=== PATIENT | male | born 1990 | race American Indian/Alaskan Native ===

== ENCOUNTER 2018-11-27 17:49 | Emergency (ER) | payer SELFPAY ==
--- NOTE | 2018-11-27 18:04 | Emergency Department Report ---
Blank Doc - Documentation Documentation: This is a 28-year-old male that presents with left flank/lower back pain. Pat ient denies any radiation of pain. Denies any urinary symptoms. Denies any other complaints. This initial assessment diagnostic orders/clinical plan/treatment(s) is/are subject to change based on patient's health status, clinical progression and re- assessment by fellow clinical providers in the ED. Further treatment and workup at subsequent clinical providers discretion. Patient/guardians urged not to elope from ED s their condition may be serious if not clinically assessed and managed. Initial orders include: 1-patient sent to [facility] for further evaluation and treatment. 2- UA
[2018-11-27 19:01] LABS: Bilirubin,Urine NEG (Negative); Blood,Urine SM (Negative); Color,Urine Yellow (Yellow); Mucus,Urine 3+ /HPF; Urobilinogen,Urine < 2.0 mg/dL (<2.0)
[2018-11-27] MEDS ORDERED: IBUPROFEN PO ONE (23:24)
--- NOTE | 2018-11-27 23:51 | XRay Report ---
FINAL REPORT PROCEDURE: XR CHEST ROUTINE 2V TECHNIQUE: PA and lateral chest radiographs were obtained. CPT 91621 HISTORY: rib pain COMPARISON: No prior studies are available for comparison. FINDINGS: Heart: Normal. Mediastinum/Vessels: Normal. Lungs/Pleural space: Normal. Bony thorax: No acute osseous abnormality. Other: IMPRESSION: Normal examination.
--- NOTE | 2018-11-28 00:45 | Emergency Department Report ---
ED Back Pain/Injury HPI - General Chief Complaint: Back Pain/Injury Stated Complaint: ABD PAIN Time Seen by Provider: 11/27/18 18:02 Source: patient Limitations: No Limitations - History of Present Illness Initial Comments: 28-year-old male to emergency department complaining of pain, left rib region. It worsens with deep breaths and certain range of motion ac tivity reports no known trauma. Denies any cough, congestion, fever, chills, sweats, hemoptysis, hematemesis, hematochezia. Pain is sharp ache and not associated with any urinary symptoms lower back symptoms. There is not have a previous history of MD Complaint: back pain Similar Symptoms Previously: No Place: home Radiation: flank (left rib region), other Quality: dull Consistency: constant Improves With: none Worsens With: none Context: while lifting, turning/twisting Associated Symptoms: denies: numbness, cough, difficulty urinating, diaphoresis, incontinence, fever/chills, constipation, abdominal pain, loss of appetite, nausea/vomiting, rash, seizure, syncope - Related Data Previous Rx's Medication Instructions Recorded Last Taken Type Ketorolac [Toradol] 10 mg PO Q6H PRN #15 tablet 11/28/18 Unknown Rx Methocarbamol [Robaxin TAB] 750 mg PO Q8H PRN #14 tablet 11/28/18 Unknown Rx Allergies Allergy/AdvReac Type Severity Reaction Status Date / Time No Known Allergies Allergy Unverified 11/27/18 18:03 ED Review of Systems ROS: Stated complaint: ABD PAIN Other details as noted in HPI Constitutional: denies: chills, fever Eyes: denies: eye pain, eye discharge, vision change ENT: denies: ear pain, throat pain Respiratory: denies: cough, shortness of breath, wheezing Cardiovascular: denies: palpitations Endocrine: no symptoms reported Gastrointestinal: denies: abdominal pain, nausea, diarrhea Genitourinary: denies: urgency, dysuria Musculoskeletal: denies: back pain, joint swelling, arthralgia Skin: denies: rash, lesions Neurological: denies: headache, weakness, paresthesias Psychiatric: denies: anxiety, depression Hematological/Lymphatic: denies: easy bleeding, easy bruising ED Past Medical Hx - Social History Smoking Status: Current Every Day Smoker Substance Use Type: Marijuana - Medications Home Medications: Home Medications Medication Instructions Recorded Confirmed Last Taken Type Ketorolac [Toradol] 10 mg PO Q6H PRN #15 tablet 11/28/18 Unknown Rx Methocarbamol [Robaxin TAB] 750 mg PO Q8H PRN #14 tablet 11/28/18 Unknown Rx ED Physical Exam - General Limitations: No Limitations General appearance: alert, in no apparent distress - Head Head exam: Present: atraumatic, normocephalic - Eye Eye exam: Present: normal appearance, PERRL, EOMI Pupils: Present: normal accommodation - ENT ENT exam: Present: normal exam, normal orophraynx, mucous membranes moist - Neck Neck exam: Present: normal inspection, full ROM - Respiratory Respiratory exam: Present: normal lung sounds bilaterally, chest wall tenderness. Absent: respiratory distress, accessory muscle use, decreased breath sounds - Cardiovascular Cardiovascular Exam: Present: regular rate, normal rhythm. Absent: systolic murmur, diastolic murmur, rubs, gallop - GI/Abdominal GI/Abdominal exam: Present: soft, normal bowel sounds. Absent: tenderness, guarding, hyperactive bowel sounds, hypoactive bowel sounds, organomegaly, mass - Rectal Rectal exam: Present: deferred. Absent: normal inspection, normal rectal tone - Extremities Exam Extremities exam: Present: normal inspection - Back Exam Back exam: Present: normal inspection, full ROM, other (there is tenderness along the left intercostal region with palpation. Full range of motion. No step-off, no lives history reveals no crepitus appreciated. No bruising to the skin, no rash to the skin.). Absent: CVA tenderness (R), CVA tenderness (L), paraspinal tenderness, vertebral tenderness - Neurological Exam Neurological exam: Present: alert, oriented X3 - Psychiatric Psychiatric exam: Present: normal affect, normal mood - Skin Skin exam: Present: warm, dry, intact, normal color. Absent: rash ED Course Vital Signs 11/27/18 18:01 Temperature 97.7 F Pulse Rate 60 Respiratory 18 Rate Blood Pressure 130/82 O2 Sat by Pulse 100 Oximetry ED Medical Decision Making - Radiology Data Radiology results: report reviewed (no acute findings on the x-ray.), image reviewed Critical care attestation.: If time is entered above; I have spent that time in minutes in the direct care of this critically ill patient, excluding procedure time. ED Disposition Clinical Impression: Musculoskeletal pain Disposition: TO HOME OR SELFCARE Is pt being admited?: No Does the pt Need Aspirin: No Condition: Stable Instructions: Musculoskeletal Pain (ED) Prescriptions: Ketorolac [Toradol] 10 mg PO Q6H PRN #15 tablet PRN Reason: Pain Methocarbamol [Robaxin TAB] 750 mg PO Q8H PRN #14 tablet PRN Reason: Pain, Moderate (4-6) Referrals: LADONNA SMALLS [Primary Care Provider] - 3-5 Days
[2018-11-28 01:17] VITALS: BP 113/73
== END 2018-11-28 01:18 | disposition home or self-care (01) ==
LOC: ED 17:49
DX: R07.81 Pleurodynia (principal); F17.200 Nicotine dependence, unspecified, uncomplicated; F12.10 Cannabis abuse, uncomplicated
CPT/HCPCS: 71046; 81001

== ENCOUNTER 2021-12-20 15:11 | Emergency (ER) | payer MEDICAID ==
[2021-12-20 16:36] VITALS: BP 106/74
--- NOTE | 2021-12-20 18:46 | Emergency Department Report ---
ED Male HPI - General Chief complaint: Urogenital-Male Stated complaint: BLADDER PAIN Time Seen by Provider: 12/20/21 18:35 Source: patient Mode of arrival: Ambulatory Limitations: No Limitations - History of Present Illness Initial comments: 31-year-old sexually active male although unprotected presents emerged department complaining of having asthma flareup of urinary issues which are similar to that received experience in August where he was seen at [facility] and treated for an STD exacerbation although he is states that the actual STD acquired was unknown MD Complaint: dysuria -: Gradual, week(s) (1) Location: penis Radiation: none Severity: mild Quality: burning Consistency: constant Improves with: none Worsens with: urination dysuria, other (Increased urinary urgency increased urinary frequency decreased urinary duction increased bladder pressure no hematuria no rashes). denies: discharge, swelling, urinary retention - Related Data Sexually active: Yes (Risky sexual behavior reported) Previous Rx's Medication Instructions Recorded Last Taken Type Ketorolac [Toradol] 10 mg PO Q6H PRN #15 tablet 11/28/18 Unknown Rx methOCARBAMOL [Robaxin TAB] 750 mg PO Q8H PRN #14 tablet 11/28/18 Unknown Rx Phenazopyridine [Pyridium] 200 mg PO BID PRN #10 tab 12/20/21 Unknown Rx RX: DOXYCYCLINE Hyclate 100 mg PO BID #28 capsule 12/20/21 Unknown Rx [Vibramycin CAP] metroNIDAZOLE [Flagyl] 500 mg PO ONCE #4 tab 12/20/21 Unknown Rx Allergies Allergy/AdvReac Type Severity Reaction Status Date / Time No Known Allergies Allergy Unverified 11/27/18 18:03 ED Review of Systems ROS: Stated complaint: BLADDER PAIN Other details as noted in HPI Comment: All other systems reviewed and negative ED Past Medical Hx - Past Medical History Previous Medical History?: Yes Hx HIV: Yes - Social History Smoking Status: Never Smoker - Medications Home Medications: Home Medications Medication Instructions Recorded Confirmed Last Taken Type Ketorolac [Toradol] 10 mg PO Q6H PRN #15 tablet 11/28/18 Unknown Rx methOCARBAMOL [Robaxin TAB] 750 mg PO Q8H PRN #14 tablet 11/28/18 Unknown Rx Phenazopyridine [Pyridium] 200 mg PO BID PRN #10 tab 12/20/21 Unknown Rx RX: DOXYCYCLINE Hyclate 100 mg PO BID #28 capsule 12/20/21 Unknown Rx [Vibramycin CAP] metroNIDAZOLE [Flagyl] 500 mg PO ONCE #4 tab 12/20/21 Unknown Rx ED Physical Exam - General Limitations: No Limitations General appearance: alert, in no apparent distress - Head Head exam: Present: atraumatic, normocephalic - Eye Eye exam: Present: normal appearance, PERRL, EOMI Pupils: Present: normal accommodation - ENT ENT exam: Present: mucous membranes moist - Neck Neck exam: Present: normal inspection - Respiratory Respiratory exam: Present: normal lung sounds bilaterally. Absent: respiratory distress - Cardiovascular Cardiovascular Exam: Present: regular rate, normal rhythm. Absent: systolic murmur, diastolic murmur, rubs, gallop - GI/Abdominal GI/Abdominal exam: Present: soft, tenderness (Suprapubic pressure with palpation. No CVA tenderness noted.), normal bowel sounds - Rectal Rectal exam: Present: deferred - External exam: Present: normal external exam - Extremities Exam Extremities exam: Present: normal inspection - Back Exam Back exam: Present: normal inspection - Neurological Exam Neurological exam: Present: alert, oriented X3 - Psychiatric Psychiatric exam: Present: normal affect, normal mood - Skin Skin exam: Present: warm, dry, intact, normal color. Absent: rash ED Course Vital Signs 12/20/21 12/20/21 16:35 16:39 Temperature 98.3 F 98.3 F Pulse Rate 92 H 92 H Respiratory 18 18 Rate Blood Pressure 106/74 Blood Pressure 106/74 [Right] O2 Sat by Pulse 99 99 Oximetry ED Medical Decision Making - Lab Data Lab Results 12/20/21 Range/Units 18:54 Urine Color Jewels (Yellow) Urine Turbidity Cloudy (Clear) Urine pH 6.0 (5.0-7.0) Ur Specific [place] 1.028 (1.003-1.030) Urine Protein 100 mg/dl (Negative) mg/dL Urine Glucose (UA) Neg (Negative) mg/dL Urine Ketones Tr (Negative) mg/dL Urine Blood Lg (Negative) Urine Nitrite Neg (Negative) Urine Bilirubin Neg (Negative) Urine Urobilinogen < 2.0 (<2.0) mg/dL Ur Leukocyte Esterase Lg (Negative) Urine WBC (Auto) > 182.0 H (0.0-6.0) /HPF Urine RBC (Auto) > 182.0 (0.0-6.0) /HPF U Epithel Cells (Auto) 3.0 (0-13.0) /HPF Urine Bacteria (Auto) 2+ (Negative) /HPF Urine WBC Clumps 3+ /HPF Urine Mucus 3+ /HPF - Medical Decision Making 31-year-old male gentleman department complaining of risky sexual behavior and dysuria but no penile discharge. Urine urinalysis does show some elevated white blood cells and based on the history there is concern for STD will cover him in the emergency department with STD injection and gave him some antibiotics to follow-up to take at home and follow-up with primary care provider and and and advised follow-up with health department for a full panel of STD testing Critical care attestation.: If time is entered above; I have spent that time in minutes in the direct care of this critically ill patient, excluding procedure time. ED Disposition Clinical Impression: UTI (urinary tract infection), Possible exposure to STD Disposition: 01 HOME / SELF CARE / HOMELESS Is pt being admited?: No Does the pt Need Aspirin: No Condition: Stable Instructions: Urinalysis Test, Urinary Tract Infection, Adult, [id number], Safe Sex Prescriptions: metroNIDAZOLE [Flagyl] 500 mg PO ONCE #4 tab Phenazopyridine [Pyridium] 200 mg PO BID PRN #10 tab PRN Reason: dysuria RX: DOXYCYCLINE Hyclate [Vibramycin CAP] 100 mg PO BID #28 capsule Referrals: [facility] [Provider Group] - 3-5 Days [facility] [Outside] - 3-5 Days PRIMARY CARE, [Primary Care Provider] - 3-5 Days
[2021-12-20 20:24] LABS: Bacteria,Urine 2+ /HPF (Negative); Bilirubin,Urine NEG (Negative); Blood,Urine LG (Negative); Color,Urine Amber (Yellow); Mucus,Urine 3+ /HPF; Urobilinogen,Urine < 2.0 mg/dL (<2.0)
[2021-12-20 20:28] LABS: RBC,Urine > 182.0 /HPF (0.0-6.0)
[2021-12-20 20:29] LABS: WBC,Urine > 182.0 /HPF (0.0-6.0)
[2021-12-20] MEDS ORDERED: LIDOCAINE-MPF (1%) 10 MG/1 ML VIAL 5 ML INFILTRATI ONE (20:33)
[2021-12-20] MEDS ORDERED: AZITHROMYCIN 250 MG TAB PO STA (20:33)
== END 2021-12-20 21:45 | disposition home or self-care (01) ==
LOC: ED 15:11
DX: N39.0 Urinary tract infection, site not specified (principal); Z20.2 Contact with and (suspected) exposure to infections with a predominantly sexual mode of transmission; Z79.899 Other long term (current) drug therapy
CPT/HCPCS: 81001; 96372; 99283; J0696; J3490